=== PATIENT | male | born 1955 | race Caucasian/White ===

== ENCOUNTER 2019-01-28 01:13 | Emergency (ER) | payer MEDICARE, OTHER | END 2019-01-28 04:16 | disposition home or self-care (01) | LOC: FTE 01:13 | DX: R05 Cough (principal); R50.9 Fever, unspecified; R09.89 Other specified symptoms and signs involving the circulatory and respiratory systems | CPT/HCPCS: 99283 ==

== ENCOUNTER 2019-02-11 09:28 | Emergency (ER) | payer MEDICARE ==
[2019-02-11] MEDS: GUAIFENESIN/CODEINE 5ML CUP PO (09:54)
[2019-02-11] MEDS: ALBUTEROL 0.083% (NEB) 2.5 MG/3 ML AMP HHN ×2 (10:01→11:55)
[2019-02-11] MEDS: IPRATROPIUM (NEB) 0.5 MG/2.5 ML AMP HHN (10:01)
== END 2019-02-11 12:27 | disposition home or self-care (01) ==
LOC: FTE 09:28
DX: J40 Bronchitis, not specified as acute or chronic (principal); J30.9 Allergic rhinitis, unspecified
CPT/HCPCS: 71046; 94640; 94664; 99284-25